=== PATIENT | female | born 1990 | race Caucasian/White ===

== ENCOUNTER 2016-11-02 19:02 | Emergency (ER) | payer OTHER ==
[~2016-11-02 19:02] MED LIST: ALBUTEROL SULF8.5 G2 IH; ALBUTEROL0.63 MG/3 IH; ALBUTEROL0.83 MG/ML INH; ALBUTEROL17 GM INH; ALBUTEROL2.5 MG/3 M INH; ALEVE220 M1 PO; ALLEGRA180 MG PO; ALLEGRA60 MG; AMITRIPTYLINE H25 M1 PO; AMOXICILLIN500 MG PO; AMOXICILLIN875 MG PO; ANTIVERT25 MG PO; AUGMENTIN; AUGMENTIN 875-1 EAC2 PO; AUGMENTIN 875-11 TAB PO; AUGMENTIN875 MG PO; BACITRACIN1 G1 EXT; BACTRIM DS TAB1 EAC2 PO; BACTRIM DS1 TA1 PO; BREO ELLIPTA 21 EACH INH; BYSTOLIC PO; BYSTOLIC2.5 MG PO; BYSTOLIC5 M1 PO; BYSTOLIC5 MG PO; CEFDINIR300 MG PO; CHERATUSSIN AC118 M1 PO; CIPRO500 M2 PO; CIPRO500 MG PO; CIPRODEX OTIC7.5 ML OT; CYMBALTA60 M1 PO; DARVOCET-N 1001 TAB PO; DIFLUCAN150 MG PO; ELAVIL50 MG PO; FLAGYL500 M1 PO; FLECAINIDE ACE100 M1 PO; FLECAINIDE PO; FLEXERIL10 MG PO; H; HUMIBID PO; IMITREX100 M2 PO; LEVAQUIN750 M1 PO; LOPRESSOR50 MG; LOPRESSOR50 MG PO; MACROBID 100 M100 M1 PO; MACROBID 100 M100 MG PO; MELOXICAM15 M1 PO; METROGEL-VAGINA70 GM VG; METRONIDAZOLE500 MG PO; MOTRIN600 MG PO; MUCINEX600 MG PO; MULTIVITAMIN1 TAB PO; MULTIVITAMINS1 EAC6 PO; MUPIROCIN22 G2 TP; NAPROXEN500 M1 PO; NEURONTIN300 M1 PO; NORCO 5-325 TA1 EACH PO; NORCO 5/325 TAB1 TAB PO; NORCO 5/3251 TA2 PO; OMNICEF250 MG/5 M; PAXIL20 MG PO; PHENERGAN W/CO120 ML PO; PREDNISONE10 M1 PO; PREDNISONE20 M1 PO; PREDNISONE20 MG PO; PROAIR HFA8.5 GM INH; PROBIOTIC1 EACH PO; PROMETHAZINE-C118 ML PO; PROTONIX40 M2 PO; QNASL8.7 G1; RECLIPSEN1 TAB PO; RELAFEN500 MG PO; ROBITUSSIN NIG118 ML PO; SEROQUEL50 M1 PO; SINGULAIR10 M1 PO; SKELAXIN800 M1 PO; SKELAXIN800 M3 PO; SKELAXIN800 MG PO; SPIRIVA RESPIMAT4 G1 INH; STOOL SOFTENER100 M1 PO; SYMBICORT 160-1 PUFF INH; SYMBICORT 160-4.6 GM IH; TERAZOL 320 GM VG; TESSALON200 MG PO; TRAMADOL HCL50 M2 PO; TYLENOL #31 TA1 PO; TYLENOL EXTRA500 M1 PO; TYLENOL325 M2 PO; VENTOLIN HFA18 G2 INH; VIBRAMYCIN100 M1 PO; VICODIN 5/500 T1 TAB PO; ZITHROMAX250 M1 PO; ZITHROMAX250MG Z-PAK PO; ZOFRAN ODT4 MG PO; ZOFRAN4 M1 PO; ZOFRAN4 M2 PO; ZYRTEC10 M1 PO; ZYRTEC10 M3 PO; [UNRECOGNIZED DRUG - OTHER]; [UNRECOGNIZED DRUG - OTHER] VG
[2016-11-02] MEDS ORDERED: QUETIAPINE FUM100 M1 PO (19:45)
[2016-11-02] MEDS ORDERED: XIIDRA1 EACH EACH EYE (19:47)
[2016-11-02 20:24] LABS: BASO % 0.2 % (0-2); EOS % 0.3 % (0-7); EOSINOPHIL ABSOLUTE COUNT 0.1 tho/cmm (0.0-0.7); HCT-HEMATOCRIT 44.5 % (34.0-49.0); HGB-HEMOGLOBIN 14.8 gm/dl (12.0-15.5); IMMATURE GRANULOCYTES ABSOLUTE 0.05 tho/cmm (0-0.03); IMMATURE GRANULOCYTES PERCENT 0.3 % (0-0.3); LYMPH % 15.7 % (20-45); LYMPH ABSOLUTE COUNT 2.8 tho/cmm (0.8-4.5); MCH (MEAN CORPUSCULAR HGB) 30.2 pg (28.0-32.0); MCHC MEAN CORPUSCULAR HGB CONC 33.3 % (32.0-36.0); MCV (MEAN CELL VOLUME) 90.8 fl (82.0-96.0); MEAN PLATELET VOLUME 9.5 cmc (9.4-12.4); MONO % 7.5 % (0-12); MONOCYTE ABSOLUTE COUNT 1.4 tho/cmm (0.0-1.2); NEUTROPHIL ABSOLUTE COUNT 13.6 tho/cmm (1.6-8.0); NEUTROPHIL-AUTOMATED 13.6 tho/cmm (1.6-8.0); PLATELET COUNT 317 tho/cmm (150-450); RED CELL DISTRIBUTION WIDTH 12.9 % (12.4-16.4); URINE APPEARANCE CLEAR; URINE BILIRUBIN NEGATIVE (NEG); URINE BLOOD SMALL (NEG); URINE COLOR YELLOW; URINE GLUCOSE (UA) NEGATIVE (NEG); URINE KETONE NEGATIVE (NEG); URINE LEUKOCYTE ESTERASE NEGATIVE (NEG); URINE NITRITE NEGATIVE (NEG); URINE PROTEIN NEGATIVE (NEG); URINE SPECIFIC GRAVITY 1.015 (1.003-1.030); WHITE BLOOD COUNT 17.9 tho/cmm (4.0-10.0)
[2016-11-02 20:30] LABS: URINE RBC 0 /[HPF] (0-5); URINE WBC 0 /[HPF] (0-5)
[2016-11-02 20:33] LABS: PREGNANCY-SERUM NEGATIVE (NEGATIVE)
[2016-11-02 20:39] LABS: ANION GAP 11 mmol/L (0-20); BLOOD UREA NITROGEN 11 mg/dl (6-24); CALCIUM 8.5 mg/dl (8.5-10.5); CARBON DIOXIDE-VENOUS 26 mmol/L (22-32); CHLORIDE 103 mmol/l (96-110); CREATININE 0.59 mg/dl (0.50-1.10); GLUCOSE 103 mg/dL (70-110); SODIUM 136 mmol/L (135-145); eGFR VALUE FOR BLACK >90 mL/Min
[2016-11-02] MEDS ORDERED: NORCO 5-325 TA1 EACH PO (22:23)
[2016-11-02] MEDS ORDERED: BENTYL10 M1 PO (22:23)
[2016-11-02] MEDS ORDERED: ZOFRAN ODT4 MG PO (22:23)
[2016-11-02] MEDS ORDERED: BACTRIM DS TAB1 EAC2 PO (22:23)
[2016-11-03] MEDS ORDERED: FLURBIPROFEN PO (14:59)
[2016-11-03] MEDS ORDERED: ULTRAM50 M1 PO (15:01)
[2016-11-03] MEDS ORDERED: ZOFRAN ODT4 MG PO (15:02)
[2016-11-03] MEDS ORDERED: BACTRIM DS TAB1 EAC2 PO (15:02)
[2016-11-03] MEDS ORDERED: ZITHROMAX250 M1 PO (15:02)
[2016-11-03] MEDS ORDERED: NORCO 5-325 TA1 EACH PO (15:04)
[2016-11-03] MEDS ORDERED: BENTYL10 M1 PO (15:05)
[2016-11-03] MEDS ORDERED: FLECAINIDE ACE100 M1 PO (21:52)
[2017-02-16] MEDS ORDERED: PROZAC20 M3 PO (23:45)
[2017-02-16] MEDS ORDERED: GENTAK5 M1 OP (23:59)
[2017-02-23] MEDS ORDERED: GUAIFENESIN-CODE5 M1 PO (22:09)
[2017-02-25] MEDS ORDERED: VIBRAMYCIN100 M1 PO (20:19)
[2017-02-25] MEDS ORDERED: NORCO 5-325 TA1 EACH PO (20:19)
[2017-03-18] MEDS ORDERED: QNASL8.7 G1 (20:48)
[2017-03-18] MEDS ORDERED: COMPAZINE10 MG PO (22:27)
[2017-03-18] MEDS ORDERED: LOPERAMIDE2 M2 PO (22:27)
[2017-03-18] MEDS ORDERED: BENTYL10 M1 PO (22:27)
[2017-03-26] MEDS ORDERED: BACTRIM DS TAB1 EAC2 PO (05:22)
[2017-03-26] MEDS ORDERED: IBUPROFEN600 M1 PO (05:22)
[2017-03-31] MEDS ORDERED: DIFLUNISAL500 M1 PO (11:38)
[2017-03-31] MEDS ORDERED: VALIUM5 M1 PO (11:39)
[2017-03-31] MEDS ORDERED: HYDROCODON-ACE1 EA16 PO (11:39)
[2017-03-31] MEDS ORDERED: HYDROXYZINE HCL50 M1 PO (11:40)
[2017-03-31] MEDS ORDERED: MECLIZINE HCL25 M3 PO (11:44)
[2017-04-02] MEDS ORDERED: TYLENOL325 M2 PO (13:42)
[2017-04-02] MEDS ORDERED: NYSTATIN15 G1 TP (13:48)
[2017-04-02] MEDS ORDERED: CLEOCIN HCL300 M1 PO (13:50)
[2017-05-02] MEDS ORDERED: ALLERGY INJECTIONS (20:34)
[2017-05-02] MEDS ORDERED: NORCO 5/3251 TAB PO (22:05)
[2017-05-02] MEDS ORDERED: VALACYCLOVIR1000 M1 PO (22:05)
== END 2016-11-02 22:39 ==
LOC: EDMED 19:02
PROVIDERS: Physician Assistant
DX: K52.9 Noninfective gastroenteritis and colitis, unspecified (principal); F32.9 Major depressive disorder, single episode, unspecified; F41.9 Anxiety disorder, unspecified; Z88.1 Allergy status to other antibiotic agents; Z98.890 Other specified postprocedural states
CPT/HCPCS: J1200; J2270; J2405; J7030; Q9967

== ENCOUNTER 2016-11-03 14:20 | Observation (INO) | payer OTHER ==
[~2016-11-03 14:20] MED LIST changes: +BENTYL10 M1 PO; +QUETIAPINE FUM100 M1 PO; +XIIDRA1 EACH EACH EYE
[2016-11-03] MEDS ORDERED: FLURBIPROFEN PO (14:59)
[2016-11-03] MEDS ORDERED: ULTRAM50 M1 PO (15:01)
[2016-11-03] MEDS ORDERED: ZITHROMAX250 M1 PO (15:02)
[2016-11-03] MEDS ORDERED: BACTRIM DS TAB1 EAC2 PO (15:02)
[2016-11-03] MEDS ORDERED: ZOFRAN ODT4 MG PO (15:02)
[2016-11-03] MEDS ORDERED: NORCO 5-325 TA1 EACH PO (15:04)
[2016-11-03] MEDS ORDERED: BENTYL10 M1 PO (15:05)
[2016-11-03 15:33] LABS: BASO % 0.2 % (0-2); EOSINOPHIL ABSOLUTE COUNT 0.1 tho/cmm (0.0-0.7); HCT-HEMATOCRIT 42.5 % (34.0-49.0); IMMATURE GRANULOCYTES ABSOLUTE 0.02 tho/cmm (0-0.03); IMMATURE GRANULOCYTES PERCENT 0.2 % (0-0.3); LYMPH % 22.9 % (20-45); LYMPH ABSOLUTE COUNT 2.6 tho/cmm (0.8-4.5); MCH (MEAN CORPUSCULAR HGB) 30.2 pg (28.0-32.0); MCHC MEAN CORPUSCULAR HGB CONC 32.9 % (32.0-36.0); MCV (MEAN CELL VOLUME) 91.8 fl (82.0-96.0); MEAN PLATELET VOLUME 9.6 cmc (9.4-12.4); MONO % 8.9 % (0-12); NEUTROPHIL ABSOLUTE COUNT 7.5 tho/cmm (1.6-8.0); NEUTROPHIL-AUTOMATED 7.5 tho/cmm (1.6-8.0); NEUTROPHILS % 66.8 % (40-80); PLATELET COUNT 319 tho/cmm (150-450); RED BLOOD COUNT 4.63 mil/cmm (4.00-5.20); RED CELL DISTRIBUTION WIDTH 13.1 % (12.4-16.4); WHITE BLOOD COUNT 11.2 tho/cmm (4.0-10.0)
[2016-11-03 15:35] LABS: ANION GAP 12 mmol/L (0-20); BLOOD UREA NITROGEN 10 mg/dl (6-24); CALCIUM 8.5 mg/dl (8.5-10.5); CARBON DIOXIDE-VENOUS 25 mmol/L (22-32); CHLORIDE 109 mmol/l (96-110); CREATININE 0.68 mg/dl (0.50-1.10); GLUCOSE 100 mg/dL (70-110); POTASSIUM 4.4 mmol/L (3.7-5.1); SODIUM 142 mmol/L (135-145); eGFR VALUE FOR BLACK >90 mL/Min
[2016-11-03 15:54] LABS: URINE BILIRUBIN NEGATIVE (NEG); URINE BLOOD SMALL (NEG); URINE GLUCOSE (UA) NEGATIVE (NEG); URINE KETONE NEGATIVE (NEG); URINE LEUKOCYTE ESTERASE NEGATIVE (NEG); URINE NITRITE NEGATIVE (NEG); URINE PROTEIN SMALL (NEG)
[2016-11-03 15:55] LABS: URINE APPEARANCE CLEAR; URINE COLOR DARK YELLOW
[2016-11-03 16:02] LABS: URINE EPITHELIAL CELLS 0-1 /[HPF] (0-10); URINE RBC 0-1 /[HPF] (0-5); URINE WBC 0-1 /[HPF] (0-5)
[2016-11-03] MEDS ORDERED: FLECAINIDE ACE100 M1 PO (21:52)
[2016-11-04 05:48] LABS: BASO % 0.3 % (0-2); EOS % 3.2 % (0-7); EOSINOPHIL ABSOLUTE COUNT 0.3 tho/cmm (0.0-0.7); HCT-HEMATOCRIT 34.3 % (34.0-49.0); IMMATURE GRANULOCYTES ABSOLUTE 0.01 tho/cmm (0-0.03); IMMATURE GRANULOCYTES PERCENT 0.1 % (0-0.3); LYMPH % 36.8 % (20-45); LYMPH ABSOLUTE COUNT 3.2 tho/cmm (0.8-4.5); MCH (MEAN CORPUSCULAR HGB) 29.6 pg (28.0-32.0); MCHC MEAN CORPUSCULAR HGB CONC 32.1 % (32.0-36.0); MCV (MEAN CELL VOLUME) 92.2 fl (82.0-96.0); MEAN PLATELET VOLUME 9.4 cmc (9.4-12.4); MONO % 10.5 % (0-12); MONOCYTE ABSOLUTE COUNT 0.9 tho/cmm (0.0-1.2); NEUTROPHIL ABSOLUTE COUNT 4.3 tho/cmm (1.6-8.0); NEUTROPHIL-AUTOMATED 4.3 tho/cmm (1.6-8.0); NEUTROPHILS % 49.1 % (40-80); PLATELET COUNT 264 tho/cmm (150-450); RED BLOOD COUNT 3.72 mil/cmm (4.00-5.20); RED CELL DISTRIBUTION WIDTH 13.2 % (12.4-16.4); WHITE BLOOD COUNT 8.7 tho/cmm (4.0-10.0)
[2017-02-16] MEDS ORDERED: PROZAC20 M3 PO (23:45)
[2017-02-16] MEDS ORDERED: GENTAK5 M1 OP (23:59)
[2017-02-23] MEDS ORDERED: GUAIFENESIN-CODE5 M1 PO (22:09)
[2017-02-25] MEDS ORDERED: NORCO 5-325 TA1 EACH PO (20:19)
[2017-02-25] MEDS ORDERED: VIBRAMYCIN100 M1 PO (20:19)
[2017-03-18] MEDS ORDERED: QNASL8.7 G1 (20:48)
[2017-03-18] MEDS ORDERED: LOPERAMIDE2 M2 PO (22:27)
[2017-03-18] MEDS ORDERED: BENTYL10 M1 PO (22:27)
[2017-03-18] MEDS ORDERED: COMPAZINE10 MG PO (22:27)
[2017-03-26] MEDS ORDERED: IBUPROFEN600 M1 PO (05:22)
[2017-03-26] MEDS ORDERED: BACTRIM DS TAB1 EAC2 PO (05:22)
[2017-03-31] MEDS ORDERED: DIFLUNISAL500 M1 PO (11:38)
[2017-03-31] MEDS ORDERED: HYDROCODON-ACE1 EA16 PO (11:39)
[2017-03-31] MEDS ORDERED: VALIUM5 M1 PO (11:39)
[2017-03-31] MEDS ORDERED: HYDROXYZINE HCL50 M1 PO (11:40)
[2017-03-31] MEDS ORDERED: MECLIZINE HCL25 M3 PO (11:44)
[2017-04-02] MEDS ORDERED: TYLENOL325 M2 PO (13:42)
[2017-04-02] MEDS ORDERED: NYSTATIN15 G1 TP (13:48)
[2017-04-02] MEDS ORDERED: CLEOCIN HCL300 M1 PO (13:50)
[2017-05-02] MEDS ORDERED: ALLERGY INJECTIONS (20:34)
[2017-05-02] MEDS ORDERED: NORCO 5/3251 TAB PO (22:05)
[2017-05-02] MEDS ORDERED: VALACYCLOVIR1000 M1 PO (22:05)
== END 2016-11-04 14:20 ==
LOC: EDMED 14:20 → EMR2 17:42 → CAR1 20:35
PROVIDERS: Emergency Medicine; ADMIT Internal Medicine
DX: R10.9 Unspecified abdominal pain (principal); E66.09 Other obesity due to excess calories; K21.9 Gastro-esophageal reflux disease without esophagitis; K52.9 Noninfective gastroenteritis and colitis, unspecified; R11.0 Nausea; R19.7 Diarrhea, unspecified; R09.02 Hypoxemia; J45.909 Unspecified asthma, uncomplicated; G62.9 Polyneuropathy, unspecified; F41.8 Other specified anxiety disorders; I49.8 Other specified cardiac arrhythmias; Z79.2 Long term (current) use of antibiotics; Z79.899 Other long term (current) drug therapy; Z88.1 Allergy status to other antibiotic agents; Z90.89 Acquired absence of other organs; Z98.890 Other specified postprocedural states
CPT/HCPCS: G0378; G8978-GP-CI; G8979-GP-CI; G8980-GP-CI; J2270; J7030; P9045

== ENCOUNTER 2016-11-28 | Inpatient (IN) | payer OTHER ==
[~2016-11-28] MED LIST changes: +FLURBIPROFEN PO; +ULTRAM50 M1 PO
[2016-11-29] MEDS ORDERED: ZANAFLEX4 M2 PO (11:14)
[2016-11-29] MEDS ORDERED: NORCO 5-325 TA1 EACH PO (11:14)
[2016-11-29] MEDS ORDERED: ZOFRAN4 M2 PO (11:15)
[2016-11-29] MEDS ORDERED: SYMBICORT 160-1 PUFF INH (11:15)
[2016-11-29] MEDS ORDERED: VIBRAMYCIN100 M1 PO (14:21)
[2017-02-16] MEDS ORDERED: PROZAC20 M3 PO (23:45)
[2017-02-16] MEDS ORDERED: GENTAK5 M1 OP (23:59)
[2017-02-23] MEDS ORDERED: GUAIFENESIN-CODE5 M1 PO (22:09)
[2017-02-25] MEDS ORDERED: VIBRAMYCIN100 M1 PO (20:19)
[2017-02-25] MEDS ORDERED: NORCO 5-325 TA1 EACH PO (20:19)
[2017-03-18] MEDS ORDERED: QNASL8.7 G1 (20:48)
[2017-03-18] MEDS ORDERED: COMPAZINE10 MG PO (22:27)
[2017-03-18] MEDS ORDERED: LOPERAMIDE2 M2 PO (22:27)
[2017-03-18] MEDS ORDERED: BENTYL10 M1 PO (22:27)
[2017-03-26] MEDS ORDERED: IBUPROFEN600 M1 PO (05:22)
[2017-03-26] MEDS ORDERED: BACTRIM DS TAB1 EAC2 PO (05:22)
[2017-03-31] MEDS ORDERED: DIFLUNISAL500 M1 PO (11:38)
[2017-03-31] MEDS ORDERED: VALIUM5 M1 PO (11:39)
[2017-03-31] MEDS ORDERED: HYDROCODON-ACE1 EA16 PO (11:39)
[2017-03-31] MEDS ORDERED: HYDROXYZINE HCL50 M1 PO (11:40)
[2017-03-31] MEDS ORDERED: MECLIZINE HCL25 M3 PO (11:44)
[2017-04-02] MEDS ORDERED: TYLENOL325 M2 PO (13:42)
[2017-04-02] MEDS ORDERED: NYSTATIN15 G1 TP (13:48)
[2017-04-02] MEDS ORDERED: CLEOCIN HCL300 M1 PO (13:50)
[2017-05-02] MEDS ORDERED: ALLERGY INJECTIONS (20:34)
[2017-05-02] MEDS ORDERED: VALACYCLOVIR1000 M1 PO (22:05)
[2017-05-02] MEDS ORDERED: NORCO 5/3251 TAB PO (22:05)
== END 2016-11-29 15:15 | DRG 872 ==
DX: A41.9 Sepsis, unspecified organism (principal); Z68.41 Body mass index [BMI] 40.0-44.9, adult; I47.1 Supraventricular tachycardia; K76.0 Fatty (change of) liver, not elsewhere classified; E66.01 Morbid (severe) obesity due to excess calories; R16.0 Hepatomegaly, not elsewhere classified; R65.20 Severe sepsis without septic shock; J45.909 Unspecified asthma, uncomplicated; F41.8 Other specified anxiety disorders; K21.9 Gastro-esophageal reflux disease without esophagitis; K57.90 Diverticulosis of intestine, part unspecified, without perforation or abscess without bleeding

== ENCOUNTER 2017-01-21 18:28 | Emergency (ER) | payer OTHER ==
[~2017-01-21 18:28] MED LIST changes: +ZANAFLEX4 M2 PO
[2017-01-21] MEDS ORDERED: NUCALA100 MG (18:58)
[2017-01-21] MEDS ORDERED: AMOXICILLIN500 M1 PO (18:59)
[2017-01-21 19:25] LABS: BASO % 0.4 % (0-2); EOS % 0.9 % (0-7); HCT-HEMATOCRIT 41.8 % (34.0-49.0); HGB-HEMOGLOBIN 13.9 gm/dl (12.0-15.5); IMMATURE GRANULOCYTES ABSOLUTE 0.02 tho/cmm (0-0.03); IMMATURE GRANULOCYTES PERCENT 0.2 % (0-0.3); LYMPH % 45.3 % (20-45); MCH (MEAN CORPUSCULAR HGB) 29.4 pg (28.0-32.0); MCHC MEAN CORPUSCULAR HGB CONC 33.3 % (32.0-36.0); MCV (MEAN CELL VOLUME) 88.6 fl (82.0-96.0); MEAN PLATELET VOLUME 9.1 cmc (9.4-12.4); MONO % 6.7 % (0-12); NEUTROPHIL ABSOLUTE COUNT 5.9 tho/cmm (1.6-8.0); NEUTROPHIL-AUTOMATED 5.9 tho/cmm (1.6-8.0); NEUTROPHILS % 46.5 % (40-80); PLATELET COUNT 338 tho/cmm (150-450); RED BLOOD COUNT 4.72 mil/cmm (4.00-5.20); RED CELL DISTRIBUTION WIDTH 12.2 % (12.4-16.4); WHITE BLOOD COUNT 12.6 tho/cmm (4.0-10.0)
[2017-01-21 19:30] LABS: BASO ABSOLUTE COUNT 0.1 tho/cmm (0.0-0.2); EOSINOPHIL ABSOLUTE COUNT 0.1 tho/cmm (0.0-0.7); LYMPH ABSOLUTE COUNT 5.7 tho/cmm (0.8-4.5); MONOCYTE ABSOLUTE COUNT 0.8 tho/cmm (0.0-1.2); PROTHROMBIN TIME 11.1 SECONDS (9.0-13.6)
[2017-01-21 19:34] LABS: PREGNANCY-SERUM NEGATIVE (NEGATIVE)
[2017-01-21 19:35] LABS: ANION GAP 11 mmol/L (0-20); BLOOD UREA NITROGEN 4 mg/dl (6-24); CALCIUM 8.7 mg/dl (8.5-10.5); CARBON DIOXIDE-VENOUS 27 mmol/L (22-32); CHLORIDE 106 mmol/l (96-110); CREATININE 0.76 mg/dl (0.50-1.10); GLUCOSE 94 mg/dL (70-110); POTASSIUM 4.3 mmol/L (3.7-5.1); SODIUM 140 mmol/L (135-145); eGFR VALUE FOR BLACK >90 mL/Min
[2017-01-21] MEDS ORDERED: PROCTOFOAM-HC 110 G1 PR (19:49)
[2017-01-21 19:54] LABS: WBC MORPHOLOGY VARIANT LYMPHS
[2017-02-16] MEDS ORDERED: PROZAC20 M3 PO (23:45)
[2017-02-16] MEDS ORDERED: GENTAK5 M1 OP (23:59)
[2017-02-23] MEDS ORDERED: GUAIFENESIN-CODE5 M1 PO (22:09)
[2017-02-25] MEDS ORDERED: VIBRAMYCIN100 M1 PO (20:19)
[2017-02-25] MEDS ORDERED: NORCO 5-325 TA1 EACH PO (20:19)
[2017-03-18] MEDS ORDERED: QNASL8.7 G1 (20:48)
[2017-03-18] MEDS ORDERED: BENTYL10 M1 PO (22:27)
[2017-03-18] MEDS ORDERED: LOPERAMIDE2 M2 PO (22:27)
[2017-03-18] MEDS ORDERED: COMPAZINE10 MG PO (22:27)
[2017-03-26] MEDS ORDERED: BACTRIM DS TAB1 EAC2 PO (05:22)
[2017-03-26] MEDS ORDERED: IBUPROFEN600 M1 PO (05:22)
[2017-03-31] MEDS ORDERED: DIFLUNISAL500 M1 PO (11:38)
[2017-03-31] MEDS ORDERED: HYDROCODON-ACE1 EA16 PO (11:39)
[2017-03-31] MEDS ORDERED: VALIUM5 M1 PO (11:39)
[2017-03-31] MEDS ORDERED: HYDROXYZINE HCL50 M1 PO (11:40)
[2017-03-31] MEDS ORDERED: MECLIZINE HCL25 M3 PO (11:44)
[2017-04-02] MEDS ORDERED: TYLENOL325 M2 PO (13:42)
[2017-04-02] MEDS ORDERED: NYSTATIN15 G1 TP (13:48)
[2017-04-02] MEDS ORDERED: CLEOCIN HCL300 M1 PO (13:50)
[2017-05-02] MEDS ORDERED: ALLERGY INJECTIONS (20:34)
[2017-05-02] MEDS ORDERED: NORCO 5/3251 TAB PO (22:05)
[2017-05-02] MEDS ORDERED: VALACYCLOVIR1000 M1 PO (22:05)
== END 2017-01-21 19:56 ==
LOC: EDMED 18:28
PROVIDERS: Physician Assistant
DX: K64.8 Other hemorrhoids (principal); Z98.890 Other specified postprocedural states; Z88.5 Allergy status to narcotic agent